=== PATIENT | female | born 1990 | race Caucasian/White ===

== ENCOUNTER 2018-07-12 10:01 | Emergency (ER) | payer MEDICAID ==
[~2018-07-12] VITALS: Ht 165.1 cm; Wt 95.3 kg
--- NOTE | 2018-07-12 10:08 | NUR ---
PT. ARRIVED TO THE ED DUE TO LOWER ABD CRAMPING S/P FALL ON WEDNESDAY. PER PATIENT " I WAS GOING DOWN THE STAIRS AND I SLIPPED AND FELL AND EVER SINCE THEN I HAVE HAD CRAMPING IN MY LOWER ABD AND I AM ". DENIES ANY HIT TO HEAD OR LOC. RR EVEN AND UNLABORED. LMP: 05/30/18. [id number]. NO CARE DONE. PT REPORTS SPOTTING WHEN WIPING. DENIES ANY N/V/D. DENIES ANY DIZZYNESS AT THIS TIME. ER MD MADE AWARE. WILL CONTINUE TO MONITOR. SAFETY PRECAUTIONS IN PLACE.
--- NOTE | 2018-07-12 10:09 | NUR ---
PT AMBULATES TO BED 4
[2018-07-12 10:10] VITALS: BP 119/62
--- NOTE | 2018-07-12 10:33 | NUR ---
Patient being evaluated by physician at bedside.
--- NOTE | 2018-07-12 10:50 | NUR ---
US AT BEDSIDE
[2018-07-12 11:00] LABS: BASOPHILS % (AUTO) 0.4 % (0.0-2.0); EOSINOPHILS # (AUTO) 0.3 K/uL (0-0.4); EOSINOPHILS % (AUTO) 2.9 % (0.0-4.0); HEMATOCRIT 34.1 % (36-48); HEMOGLOBIN 10.7 g/dL (12.0-16.0); LYMPHOCYTES # (AUTO) 2.6 K/uL (2.5-16.5); MEAN CORPUSCULAR HEMOGLOBIN 23 pg (27-31); MEAN CORPUSCULAR HGB CONC 31 g/dL (33-37); MEAN CORPUSCULAR VOLUME 73.4 fL (80-94); MONOCYTES # (AUTO) 0.7 K/uL (0.8-1.0); MONOCYTES % (AUTO) 6.4 % (1.7-9.3); NEUTROPHILS # (AUTO) 7.1 K/uL (1.8-7.7); NEUTROPHILS % (AUTO) 66.3 % (42.2-75.2); PLATELET COUNT (AUTO) 242 K/uL (140-450); RED BLOOD CELL COUNT(AUTO) 4.65 MIL/uL (4.20-5.40); RED CELL DISTRIBUTION WIDTH 18.4 % (11.6-13.7); WHITE BLOOD COUNT (AUTO) 10.8 K/uL (4.8-10.8)
--- NOTE | 2018-07-12 11:18 | NUR ---
PT. RESTING COMFORTABLY IN BED, RR EVEN AND UNLABORED. HOB ELEVATED. WILL CONTINUE TO MONITOR.
[2018-07-12 11:34] LABS: APPEARANCE,URINE CLEAR (CLEAR); BILIRUBIN,URINE NEGATIVE (NEGATIVE); BLOOD, URINE NEGATIVE (NEGATIVE); COLOR,URINE YELLOW (YELLOW); LEUKOCYTE ESTERASE ,URINE NEGATIVE (NEGATIVE); NITRITE, URINE NEGATIVE (NEGATIVE); UGLUCOSE NEGATIVE (NEGATIVE)
[2018-07-12 12:15] VITALS: BP 115/69
--- NOTE | 2018-07-12 12:15 | NUR ---
Patient discharged with v/s stable. Written and verbal after care instructions given and explained. Patient verbalized understanding. Ambulatory with steady gait. All questions addressed prior to discharge. Advised to follow up with PMD.
== END 2018-07-12 12:15 | disposition home or self-care (01) ==
LOC: MED 10:01
DX: O9A.219 Injury, poisoning and certain other consequences of external causes complicating pregnancy, unspecified trimester (principal); O20.0 Threatened abortion; S30.0XXA Contusion of lower back and pelvis, initial encounter; W10.9XXA Fall (on) (from) unspecified stairs and steps, initial encounter; Y93.89 Activity, other specified; Y92.89 Other specified places as the place of occurrence of the external cause; Y99.8 Other external cause status
CPT/HCPCS: 36415; 76817; 81003; 81025; 84702; 85025; 86900; 86901; 99284; Q0092

== ENCOUNTER 2018-12-23 21:06 | Observation (INO) | payer MEDICAID, OTHER ==
[~2018-12-23] VITALS: Ht 165.1 cm; Wt 97.1 kg
[2018-12-23 21:24] VITALS: BP 113/70
--- NOTE | 2018-12-23 21:38 | NUR ---
PATIENT TRANSFERRED TO L&D. REPORT TO KULDIP BEAN.
[2018-12-23] MEDS ORDERED: TERBUTALINE 1 MG/ML VIAL SUBQ ONE ×2 (22:25→22:50)
[2018-12-23 23:19] VITALS: BP 106/63
== END 2018-12-23 23:50 | disposition home or self-care (01) ==
LOC: MED 21:06 → MFCC 21:39
PROVIDERS: ADMIT Obstetrics & Gynecology; ATTEND Obstetrics & Gynecology
DX: O36.8130 Decreased fetal movements, third trimester, not applicable or unspecified (principal); O26.893 Other specified pregnancy related conditions, third trimester; R10.2 Pelvic and perineal pain; Z3A.28 28 weeks gestation of pregnancy
CPT/HCPCS: 96372; 99281; G0378; J3105; 81000